=== PATIENT | male | born 1990 | race Caucasian/White ===

== ENCOUNTER 2019-10-01 08:24 | Emergency (ER) | payer MEDICAID ==
[~2019-10-01] VITALS: Ht 182.9 cm; Wt 75.7 kg
[2019-10-01 08:30] VITALS: Ht 182.9 cm; Wt 75.7 kg
[2019-10-01 09:03] LABS: BASOPHIL % 0.4 % (0-2); PLATELET COUNT 211 x10^3mcL (130-400); RED CELL DISTRIBUTION WIDTH 13.1 % (11.5-14.5)
[2019-10-01 09:08] LABS: CALCIUM 9.4 mg/dL (8.5-10.1); CHLORIDE SERUM 103 mmol/L (98-107); GFR1 > 60 mL/min; GLUCOSE SERUM 118 mg/dL (74-106); SODIUM SERUM 142 mmol/L (136-145)
[2019-10-01 09:21] LABS: ALBUMIN 4.9 g/dL (3.4-5.0); ALKALINE PHOSPHATASE 93 U/L (46-116); ALT/SGPT 27 U/L (16-63); AST/SGOT 17 U/L (15-37); BILIRUBIN TOTAL 1.6 mg/dL (0.20-1.00); T4(THYROXINE) 9.4 ug/dL (4.7-13.3); TOTAL PROTEIN, SERUM 7.7 g/dL (6.4-8.2)
[2019-10-01 10:43] LABS: AMPHETAMINE QUAL UR NONE DETECTED (See below)
[2019-10-01 14:00] VITALS: BP 119/57
== END 2019-10-01 14:00 | disposition home or self-care (01) ==
LOC: ED 08:24
PROVIDERS: Emergency Medicine
DX: F11.23 Opioid dependence with withdrawal (principal); F17.200 Nicotine dependence, unspecified, uncomplicated
CPT/HCPCS: 99406; G0480; J2060; J2405; J7030